=== PATIENT | female | born 1970 | race Caucasian/White ===

== ENCOUNTER 2020-03-25 09:10 | Emergency (ER) | payer OTHER ==
[2020-03-25 09:15] VITALS: BMI 21.9
[2020-03-25 09:20] VITALS: BP 98/58; PULSE 82; TEMP 98.3
== END 2020-03-25 09:34 | disposition home or self-care (01) ==
LOC: FER 09:10
DX: Z48.02 Encounter for removal of sutures (principal)
CPT/HCPCS: 99281-25

== ENCOUNTER 2023-10-21 12:24 | Emergency (ER) | payer OTHER ==
[2023-10-21 12:35] VITALS: BP 127/78; PULSE 79; RESP 18; TEMP 98; BMI 21.9
[2023-10-21] MEDS ORDERED: DIPHTH,PERTUSS(ACELL),TET 0.5 ML DISP.SYRIN IM ONE (12:46)
[2023-10-21] MEDS ORDERED: AMOX TR/POT CLAV 875MG/125MG TABLETS (FP) ONE (12:46)
[2023-10-21] MEDS: AMOX TR/POT CLAV 875MG/125MG TABLETS (FP) PO ONE (12:54)
[2023-10-21] MEDS: DIPHTH,PERTUSS(ACELL),TET 0.5 ML DISP.SYRIN IM ONE (12:54)
== END 2023-10-21 13:29 | disposition home or self-care (01) ==
LOC: FER 12:24
PROC: 3E0234Z Introduction of Serum, Toxoid and Vaccine into Muscle, Percutaneous Approach (ICD-10-PCS; principal; 2023-10-21)
DX: S71.151A Open bite, right thigh, initial encounter (principal); W54.0XXA Bitten by dog, initial encounter; Z23 Encounter for immunization
CPT/HCPCS: 90715; 99283-25